=== PATIENT | male | born 1950 | race Caucasian/White ===

== ENCOUNTER 2021-04-20 07:50 | Outpatient (CLI) | payer OTHER | END 2021-04-20 08:08 | disposition home or self-care (01) | LOC: RX STUDY 07:50 | PROVIDERS: ATTEND Surgery | DX: K59.09 Other constipation (principal) ==

== ENCOUNTER 2021-07-26 10:49 | Inpatient (IN) | payer OTHER ==
[~2021-07-26] VITALS: Ht 172.7 cm; Wt 31.8 kg
[2021-07-27] MEDS ORDERED: AMOX-CLAV 875-1 EACH (09:29)
[2021-07-27] MEDS ORDERED: PROCTO-MED HC28 GM (09:29)
[2021-07-27] MEDS ORDERED: BUSPIRONE HCL5 MG (09:29)
[2021-07-27] MEDS ORDERED: DICLOFENAC POTA50 MG (09:30)
[2021-07-27] MEDS ORDERED: RESTORIL30 MG (09:30)
[2021-07-27] MEDS ORDERED: CARBIDOPA-LEVO1 EA10 (09:30)
[2021-07-27] MEDS ORDERED: CLONAZEPAM2 MG (09:30)
[2021-07-27] MEDS ORDERED: TRAZODONE HCL150 MG (09:30)
[2021-07-27] MEDS ORDERED: FLUOXETINE HCL40 MG (09:30)
[2021-07-27] MEDS ORDERED: PANTOPRAZOLE SO40 MG (09:31)
[2021-07-27] MEDS ORDERED: ST. JOSEPH ASPI81 M2 (09:31)
[2021-07-27] MEDS ORDERED: AMLODIPINE BESYL5 MG (09:31)
[2021-07-27] MEDS ORDERED: ATORVASTATIN CA20 MG (09:31)
[2021-07-27] MEDS ORDERED: TAMSULOSIN HCL0.4 MG (09:31)
[2021-07-27] MEDS ORDERED: LINZESS145 MCG (09:31)
[2021-07-27] MEDS ORDERED: GABAPENTIN300 M2 (09:32)
== END 2021-08-04 08:41 | disposition home or self-care (01) | DRG 690 ==
LOC: ER 10:49 → SEC-K 13:36 → SURH 21:38
PROVIDERS: ADMIT Colon & Rectal Surgery; ATTEND Colon & Rectal Surgery
PROC: 02HV33Z Insertion of Infusion Device into Superior Vena Cava, Percutaneous Approach (ICD-10-PCS; 2021-07-27)
PROC: BW24YZZ Computerized Tomography (CT Scan) of Chest and Abdomen using Other Contrast (ICD-10-PCS; 2021-07-28)
PROC: 0DJD8ZZ Inspection of Lower Intestinal Tract, Via Natural or Artificial Opening Endoscopic (ICD-10-PCS; principal; 2021-07-29)
DX: N39.0 Urinary tract infection, site not specified (principal); B96.1 Klebsiella pneumoniae [K. pneumoniae] as the cause of diseases classified elsewhere; K59.09 Other constipation; K64.8 Other hemorrhoids; E86.0 Dehydration; R63.4 Abnormal weight loss; J43.9 Emphysema, unspecified; G20 Parkinson's disease; F43.23 Adjustment disorder with mixed anxiety and depressed mood; E87.8 Other disorders of electrolyte and fluid balance, not elsewhere classified; F32.89 Other specified depressive episodes; Z20.822 Contact with and (suspected) exposure to COVID-19; Z72.0 Tobacco use

== ENCOUNTER 2022-02-17 11:47 | Emergency (ER) | payer OTHER ==
[~2022-02-17] VITALS: Ht 172.7 cm; Wt 39.5 kg
[~2022-02-17 11:47] MED LIST: AMLODIPINE BESYL5 MG; AMOX-CLAV 875-1 EACH; ATORVASTATIN CA20 MG; BUSPIRONE HCL5 MG; CARBIDOPA-LEVO1 EA10; CLONAZEPAM2 MG; DICLOFENAC POTA50 MG; DICLOFENAC POTA50 MG PO; FLUOXETINE HCL40 MG; GABAPENTIN300 M2; LINZESS145 MCG; PANTOPRAZOLE SO40 MG; PROCTO-MED HC28 GM; RESTORIL30 MG; ST. JOSEPH ASPI81 M2; TAMSULOSIN HCL0.4 MG; TRAZODONE HCL150 MG
[2022-02-17] MEDS ORDERED: DIAZEPAM2 MG PO (13:02)
[2022-02-17] MEDS ORDERED: SULFAMETHOXAZOL20 ML PO (13:03)
[2022-02-17] MEDS ORDERED: BACTRIM DS TAB1 EACH PO (18:28)
[2022-02-18] MEDS ORDERED: DOCUSATE CALCI240 MG PO (09:36)
== END 2022-02-18 10:14 | disposition home or self-care (01) ==
LOC: ER 11:47
DX: N39.0 Urinary tract infection, site not specified (principal); R10.84 Generalized abdominal pain; I10 Essential (primary) hypertension; Z72.0 Tobacco use; Z85.038 Personal history of other malignant neoplasm of large intestine; Z85.05 Personal history of malignant neoplasm of liver

== ENCOUNTER 2022-02-28 10:36 | Inpatient (IN) | payer OTHER ==
[~2022-02-28] VITALS: Ht 172.7 cm; Wt 38.6 kg
[~2022-02-28 10:36] MED LIST changes: +BACTRIM DS TAB1 EACH PO; +DIAZEPAM2 MG PO; +DOCUSATE CALCI240 MG PO; +SULFAMETHOXAZOL20 ML PO
--- NOTE | 2022-02-28 10:44 | NUR ---
SE RECIBE PACIENTE ALERTA Y ORIENTADO DE AMBULANCIA QUIEN REFIERE ESTUVO EN LA [facility] COLORECTAL Y VIENE CON REFERIDO DE DOLOR ABDOMINAL. SE MONITOREAN LOS SV Y SE UBICA EN DIVINA.
== END 2022-03-11 17:00 | disposition home or self-care (01) | DRG 999 ==
LOC: ER 10:36 → SURH 12:44
PROVIDERS: ADMIT Colon & Rectal Surgery; ATTEND Colon & Rectal Surgery
PROC: 0DJD8ZZ Inspection of Lower Intestinal Tract, Via Natural or Artificial Opening Endoscopic (ICD-10-PCS; principal; 2022-03-03 09:45)
PROC: 3E0T3BZ Introduction of Anesthetic Agent into Peripheral Nerves and Plexi, Percutaneous Approach (ICD-10-PCS; 2022-03-10)
DX: K59.4 Anal spasm (principal); K62.89 Other specified diseases of anus and rectum; N39.0 Urinary tract infection, site not specified; B96.1 Klebsiella pneumoniae [K. pneumoniae] as the cause of diseases classified elsewhere; Z16.12 Extended spectrum beta lactamase (ESBL) resistance; Z16.24 Resistance to multiple antibiotics; F32.9 Major depressive disorder, single episode, unspecified; R63.4 Abnormal weight loss; E43 Unspecified severe protein-calorie malnutrition; I10 Essential (primary) hypertension; G20 Parkinson's disease; Z68.1 Body mass index [BMI] 19.9 or less, adult
CPT/HCPCS: 72148

== ENCOUNTER 2022-06-28 10:35 | Emergency (ER) | payer OTHER ==
[~2022-06-28] VITALS: Ht 172.7 cm; Wt 36.3 kg
== END 2022-06-28 18:32 | disposition home or self-care (01) ==
LOC: ER 10:35
DX: K62.89 Other specified diseases of anus and rectum (principal)

== ENCOUNTER → 2022-07-03 06:00 | Outpatient (CLI) | payer OTHER ==
[~2022-07-03] VITALS: Ht 172.7 cm; Wt 36.3 kg
== END | disposition home or self-care (01) ==
LOC: LAB 06:00 → CIR.AMB 07-05 12:49 → EDSTATUS 07-24 13:19
PROVIDERS: ATTEND Anesthesiology Pain Medicine
DX: Z01.811 Encounter for preprocedural respiratory examination (principal); Z01.810 Encounter for preprocedural cardiovascular examination; Z01.812 Encounter for preprocedural laboratory examination; K62.89 Other specified diseases of anus and rectum; F41.9 Anxiety disorder, unspecified; G20 Parkinson's disease

== ENCOUNTER 2022-07-10 10:18 | Outpatient (CLI) | payer OTHER | END 2022-07-10 14:49 | disposition home or self-care (01) | LOC: LAB 10:18 | PROVIDERS: ATTEND Internal Medicine | DX: N39.0 Urinary tract infection, site not specified (principal) ==

== ENCOUNTER → 2022-08-09 06:00 | Outpatient (CLI) | payer OTHER ==
[~2022-08-09] VITALS: Ht 172.7 cm; Wt 38.6 kg
[~2022-08-09 06:00] MED LIST changes: +MIRALAX17 GM PO
== END | disposition home or self-care (01) ==
LOC: LAB 06:00 → ADM 11:45 → CIR.AMB 08-11 10:00 → EDSTATUS 08-11 11:45
PROVIDERS: ATTEND Anesthesiology Pain Medicine
DX: Z01.810 Encounter for preprocedural cardiovascular examination (principal); Z01.811 Encounter for preprocedural respiratory examination; Z01.812 Encounter for preprocedural laboratory examination; K62.89 Other specified diseases of anus and rectum; Z20.822 Contact with and (suspected) exposure to COVID-19

== ENCOUNTER 2024-07-05 15:58 | Emergency (ER) | payer OTHER ==
[~2024-07-05] VITALS: Ht 165.1 cm; Wt 45.4 kg
[2024-07-05] MEDS ORDERED: 0.9 % SODIUM CHLORIDE 1,000 ML IV SCH (17:30)
[2024-07-05 18:09] LABS: HEMATOCRIT 39.4 % (39.0-48.0); HEMOGLOBIN 13.7 g/dL (13-16.00); MEAN CELL VOLUME 103.4 fL (80.0-100.00); MEAN CORPUSCULAR HEMOGLOBIN 36.1 pg (27.00-32.0); MEAN CORPUSCULAR HGB CONC 34.9 g/dl (32.0-36.0); PLATELET COUNT 165 K/uL (150-450); RED BLOOD COUNT 3.81 M/uL (4.00-6.00); RED CELL DISTRIBUTION WIDTH 13.3 % (11.5-14.5)
[2024-07-05 18:28] LABS: ALBUMIN 3.9 gm/dL (3.4-5.0); BILIRUBIN TOTAL 0.37 mg/dL (0.3-1.2); BILIRUBIN,CONJUGATED 0.18 mg/dL (0.0-0.2); BILIRUBIN,UNCONJUGATED 0.19 mg/dL (0.0-0.6); CALCIUM 8.9 mg/dL (8.5-10.1); CREATININE SERUM 0.85 mg/dL (0.70-1.30); GFR 88.85; GLOBULINA 3.3 G/DL (2.4-3.5); POTASSIUM 3.88 mEq/L (3.5-5.1); TOTAL PROTEIN 7.2 gm/dL (6.4-8.2)
[2024-07-05 18:43] LABS: URINE APPEARANCE Clear; URINE BILIRRUBIN Negative (NEGATIVE); URINE BLOOD Negative; URINE COLOR Yellow; URINE GLUCOSE Negative (NEGATIVE); URINE KETONE Negative (NEGATIVE); URINE LEUKOCYTE Large; URINE NITRATE Positive; URINE PROTEIN Negative (NEGATIVE); URINE UROBILINOGEN 0.2 E.U./dl
[2024-07-05 18:47] LABS: URINE EPITHELIAL CELLS 22.7 uL (0.0-38.8); URINE WBC 156.2 uL (0.0-23.2)
[2024-07-05 19:36] LABS: URINE BACTERIA > 9821.5 uL (0.0-1933); URINE CAST 0.44 uL (0.0-1.40); URINE RBC 0.4 uL (0.0-20.8)
[2024-07-05] MEDS ORDERED: CEFTRIAXONE SODIUM 2,000 MG VIAL ONE (20:21)
[2024-07-05] MEDS ORDERED: CEFTRIAXONE SODIUM 2,000 MG VIAL IV ONE (20:30)
== END 2024-07-06 02:07 | disposition home or self-care (01) ==
LOC: ER 15:58
PROVIDERS: Emergency Medicine
DX: K62.89 Other specified diseases of anus and rectum (principal); R30.0 Dysuria; N39.0 Urinary tract infection, site not specified
CPT/HCPCS: 36415; 96365; 96366; 99282; J0696; J7030